=== PATIENT | male | born 1950 | race Caucasian/White ===

== ENCOUNTER 2017-06-17 21:10 | Emergency (ER) | payer OTHER ==
[~2017-06-17] VITALS: Ht 160 cm; Wt 68.0 kg
[2017-06-17] MEDS ORDERED: FAMOTIDINE 20MG/2ML VIAL IV STA (23:40)
[2017-06-17] MEDS ORDERED: SODIUM CHLORIDE 0.9% 1,000 ML IV ONE (23:40)
[2017-06-18 00:35] LABS: HEMATOCRIT. 39.5 % (42.0-52.0); HEMOGLOBIN. 13.7 g/dL (14.0-18.0); MEAN CORPUSCULAR HEMOGLOBIN 32.6 pg (28.0-32.0); MEAN CORPUSCULAR VOLUME 94.1 fL (80.0-94.0); MEAN PLATELET VOLUME 9.5 fl (7.4-10.4); PLATELET 138 x1000/uL (130-400); RED CELL DISTRIBUTION WIDTH 13.2 % (11.6-14.6)
[2017-06-18 00:54] LABS: CARBON DIOXIDE 24 mEq/L (21-32); CHLORIDE 102 mEq/L (98-107); ETHANOL BLOOD < 10 mg/dL; TROPONIN I < 0.02 ng/mL (0.00-0.04)
[2017-06-18 01:04] LABS: PROTHROMBIN TIME 10.1 sec (9.4-11.6)
[2017-06-18 01:35] LABS: PLATELET ESTIMATE NORMAL
[2017-06-18] MEDS ORDERED: SODIUM CHLORIDE 0.9% 1,000 ML IV ONE (02:25)
[2017-06-18 03:01] LABS: CLARITY URINE CLEAR (CLEAR); COLOR URINE YELLOW (YELLOW); GLUCOSE URINE NEGATIVE (NEGATIVE); KETONES URINE NEGATIVE (NEGATIVE); LEUKOCYTE ESTERASE URINE NEGATIVE (NEGATIVE); NITRITE URINE NEGATIVE (NEGATIVE); OCCULT BLOOD URINE NEGATIVE (NEGATIVE); PH URINE 5.5 (4.5-8.0); PROTEIN URINE NEGATIVE (NEGATIVE); SPECIFIC GRAVITY URINE 1.008 (1.005-1.030); UROBILINOGEN URINE 0.2 E.U./dL (0.2-1.0)
[2017-06-18 03:54] LABS: *AMPHETAMINES SCREEN URINE NEGATIVE (NEGATIVE); *BARBITURATES SCREEN URINE NEGATIVE (NEGATIVE); *BENZODIAZEPINES SCREEN URINE NEGATIVE (NEGATIVE); *COCAINE SCREEN URINE NEGATIVE (NEGATIVE); CANNABINOID URINE SCREEN NEGATIVE (NEGATIVE); METHADONE URINE SCREEN NEGATIVE (NEGATIVE); OPIATES URINE SCREEN NEGATIVE (NEGATIVE); PHENCYCLIDINE URINE SCREEN NEGATIVE (NEGATIVE)
[2017-06-18 04:26] VITALS: BP 142/78
== END 2017-06-18 04:28 | disposition home or self-care (01) ==
LOC: ER 21:11
DX: K83.9 Disease of biliary tract, unspecified (principal); R74.0 Nonspecific elevation of levels of transaminase and lactic acid dehydrogenase [LDH]; M25.511 Pain in right shoulder; R03.0 Elevated blood-pressure reading, without diagnosis of hypertension
CPT/HCPCS: 36415; 71010; 74176; 76705; 80053; 80305; 81003; 83605; 83690; 83880; 84484; 85025; 85610; 93005; 96361; 96374; 99291; G0482; J3490; J7030; Z7610

== ENCOUNTER 2018-05-15 23:52 | Emergency (ER) | payer OTHER ==
[~2018-05-15] VITALS: Ht 149.9 cm; Wt 72.0 kg
[2018-05-16] MEDS ORDERED: ACETAMINOPHEN 325MG TABLET PO ONE (02:45)
[2018-05-16 05:35] LABS: BASOPHILS % 0.3 % (0.0-2.0); EOSINOPHILS % 1.9 % (0.0-5.0); HEMATOCRIT. 42.3 % (42.0-52.0); HEMOGLOBIN. 14.5 g/dL (14.0-18.0); LYMPHOCYTES % 17.9 % (20.0-50.0); MEAN CORPUSCULAR HEMOGLOBIN 33.1 pg (28.0-32.0); MEAN CORPUSCULAR VOLUME 96.4 fL (80.0-94.0); MEAN PLATELET VOLUME 9.2 fl (7.4-10.4); MONOCYTES % 7.7 % (2.0-8.0); NEUTROPHILS % 72.2 % (40.0-76.0); PLATELET 137 x1000/uL (130-400); RED BLOOD CELL COUNT 4.39 mill/uL (4.7-6.1); RED CELL DISTRIBUTION WIDTH 13.7 % (11.6-14.6)
[2018-05-16 05:38] LABS: CHLORIDE 105 mEq/L (98-107)
[2018-05-16 05:50] LABS: INR 1.1
[2018-05-16] MEDS ORDERED: POTASSIUM CHLORIDE 20MEQ TABLET SR PO NR (09:00)
[2018-05-16 10:32] LABS: CLARITY URINE CLEAR (CLEAR); COLOR URINE PALE YELLOW (YELLOW); KETONES URINE NEGATIVE (NEGATIVE); LEUKOCYTE ESTERASE URINE NEGATIVE (NEGATIVE); NITRITE URINE NEGATIVE (NEGATIVE); OCCULT BLOOD URINE NEGATIVE (NEGATIVE); PH URINE 5.5 (4.5-8.0); PROTEIN URINE NEGATIVE (NEGATIVE); SPECIFIC GRAVITY URINE 1.002 (1.005-1.030); UROBILINOGEN URINE 0.2 E.U./dL (0.2-1.0)
[2018-05-16 11:45] VITALS: BP 136/76
== END 2018-05-16 12:47 | disposition home or self-care (01) ==
LOC: ER 05-16 05:53 → CANBEDREQ 05-16 09:48 → ER 05-16 12:47
DX: S09.8XXA Other specified injuries of head, initial encounter (principal); S00.83XA Contusion of other part of head, initial encounter; F10.20 Alcohol dependence, uncomplicated; Y90.8 Blood alcohol level of 240 mg/100 ml or more; W01.0XXA Fall on same level from slipping, tripping and stumbling without subsequent striking against object, initial encounter; Y93.9 Activity, unspecified; Y92.9 Unspecified place or not applicable
CPT/HCPCS: 36415; 70450; 70486; 80053; 81003; 85025; 85610; 99285; G0482

== ENCOUNTER 2022-06-18 16:36 | Emergency (ER) | payer MEDICAID, MEDICARE ==
[~2022-06-18] VITALS: Ht 165.1 cm; Wt 70.0 kg
[2022-06-18] MEDS ORDERED: IBUPROFEN 400MG TABLET PO ONE (17:15)
[2022-06-18] MEDS ORDERED: AMOXICILLIN/POTASSIUM CLAVULANATE 875/125MG TAB PO ONE (17:15)
[2022-06-18] MEDS ORDERED: TETANUS, DIPHTHERIA, PERTUSSIS VAC/PF 0.5ML (>10YR OLD) IM ONE (17:30)
[2022-06-18] MEDS ORDERED: IBUP-2028 MT (18:59)
[2022-06-18] MEDS ORDERED: AMOX1TAB16 MT (18:59)
[2022-06-18 20:24] VITALS: BP 175/96
== END 2022-06-18 20:26 | disposition home or self-care (01) ==
LOC: ER 16:36
DX: S51.851A Open bite of right forearm, initial encounter (principal); W54.0XXA Bitten by dog, initial encounter; Y93.89 Activity, other specified; Y92.89 Other specified places as the place of occurrence of the external cause; Y99.8 Other external cause status
CPT/HCPCS: 73090; 90471; 90715; 99283

== ENCOUNTER 2022-06-20 06:36 | Emergency (ER) | payer SELFPAY ==
[~2022-06-20] VITALS: Ht 157.5 cm; Wt 77.5 kg
[~2022-06-20 06:36] MED LIST: AMOX1TAB16 MT; IBUP-2028 MT
[2022-06-20 06:58] VITALS: BP 113/75
== END 2022-06-20 07:15 | disposition home or self-care (01) ==
LOC: ER 06:55
DX: Z48.00 Encounter for change or removal of nonsurgical wound dressing (principal)
CPT/HCPCS: 99281

== ENCOUNTER 2023-08-27 23:29 | Emergency (ER) | payer MEDICARE, MEDICAID ==
[~2023-08-27] VITALS: Ht 160 cm; Wt 73.0 kg
[2023-08-28 00:02] VITALS: TEMP 98.6; O2SAT 100
[2023-08-28] MEDS ORDERED: TRANEXAMIC ACID 1,000 MG/10 ML TP ONE (00:15)
[2023-08-28] MEDS ORDERED: LIDOCAINE HCL/EPINEPHRINE 1%-EPI 1:100,000 20 ML VIAL INFIL ONE (00:15)
[2023-08-28 03:00] VITALS: BP 121/72; PULSE 72; RESP 18
== END 2023-08-28 03:12 | disposition home or self-care (01) ==
LOC: ER 23:29
DX: S01.01XA Laceration without foreign body of scalp, initial encounter (principal); F10.90 Alcohol use, unspecified, uncomplicated; R51.9 Headache, unspecified; W01.0XXA Fall on same level from slipping, tripping and stumbling without subsequent striking against object, initial encounter; Y93.89 Activity, other specified; Y92.89 Other specified places as the place of occurrence of the external cause; Y99.8 Other external cause status; Y90.9 Presence of alcohol in blood, level not specified
CPT/HCPCS: 99284; 70450; J3490

== ENCOUNTER 2025-01-14 13:43 | Emergency (ER) | payer MEDICARE, MEDICAID ==
[~2025-01-14] VITALS: Ht 149.9 cm; Wt 68.0 kg
[2025-01-14 13:46] VITALS: O2SAT 96
[2025-01-14] MEDS: CYCLOBENZAPRINE 10MG TABLET PO ONE (17:55)
[2025-01-14] MEDS: KETOROLAC 30MG/ML VIAL IM ONE (17:55)
[2025-01-14] MEDS ORDERED: IBUP-2029 MT (18:43)
[2025-01-14] MEDS ORDERED: CYCL5TAB3 MT (18:43)
[2025-01-14 19:03] VITALS: BP 138/74; PULSE 87; RESP 16; TEMP 36.7; O2SAT 96
== END 2025-01-14 19:14 | disposition home or self-care (01) ==
LOC: ER 13:43
DX: G24.3 Spasmodic torticollis (principal); E78.00 Pure hypercholesterolemia, unspecified; I10 Essential (primary) hypertension; Z79.899 Other long term (current) drug therapy
CPT/HCPCS: 99283; 96372; J1885